=== PATIENT | male | born 1990 | race African-American/Black ===

== ENCOUNTER 2020-08-21 21:22 | Emergency (ER) | payer BC, OTHER ==
--- OUTSIDE RECORDS SUMMARY | 2020-08-21 21:26 | XMS REPORT | Continuity of Care Document ---
:1990 Author Organization [facility] t Address [address] [place] [address] Care Team Providers Name Role Phone Unavailable Unavailable Unavailable Problems Condition Condition Condition Status Onset Resolution Last Treating Co mments Source Name Details Category Date Date Treatment Clinician Date Gastro-eso Gastro-eso Problem Active [facility] - reflux reflux Memoria disease disease l without without Outpati esophagiti esophagiti en t s s Clinics Asthma Asthma Problem Active [facility] without without [facility] - status status Memoria asthmaticu asthmaticu l s or acute s or acute Ou tpati exacerbati exacerbati en t on on Clinics Unequal Unequal Problem Active [facility] leg length leg length Sho kes - Memoria l [facility] Clinics Insomnia Insomnia Problem [facility] Gastritis Gastritis Problem Active [facility] Abdominal Abdominal Problem Active [facility] bloating bloating [facility] Clubfoot Clubfoot Problem [facility] Allergic Allergic Problem Active [facility] rhinitis, rhinitis, [facility] - seasonal seasonal Memori a l [facility] Clinics Early Early Problem Active [facility] satiety satiety [facility] HTN, goal HTN, goal Problem Active [facility] below below [facility] - 140/80 140/80 Memoria l [facility] Prediabete Prediabete Problem Active [facility]ics Hypertrigl Hypertrigl Problem Active [facility] yceridemia yceridemia Sho kes - Memoria l [facility] Clinics Allergic Allergic Problem Active [facility] rhinitis, rhinitis, [facility] - unspecifie unspecifie Me moria d d l seasonalit seasonalit Ou tpati y, y, ent unspecifie unspecifie Cl inics d trigger d trigger Mixed Mixed Problem Active [facility] hyperlipid hyperlipid Sho kes - emia emia [facility] ent [facility] Allergies, Adverse Reactions, Alerts This patient has no known allergies or adverse reactions. Medications Ordered Filled Start Stop Current Ordering Indication Dosage Frequency Signature Comments Components Source Medication Medication Date Date Medication? Clinician (SIG) Name Name Metformin Metformin Yes Bola [address] [facility] HCl HCl 3 [facility] with a [facility] - 00:00: meal Memoria 00 [facility] ent [facility] Yes Bola [address] [facility] Sodium Sodium 07-27 [facility] Flonase Flonase Yes Bola [address] spray [facility] each [facility] - nostril [facility] ent [facility] Ventolin Ventolin Yes Bola [address] [facility] HFA HFA [facility] needed [facility] ent [facility] Omeprazole Omeprazole Yes Bola [address] [facility] ent [facility] Claritin Claritin Yes Bola [address] [facility] [facility] ent Clinics Procedures This patient has no known procedures. Encounters Start End Encounter Admission Attending Care Care Encounter Source Date/Time Date/Time Type Type Clinicians Facility Department ID 2020-01-02 2020-01-02 Outpatient Mayra Orta [id number] [facility] 17:02:00 17:02:00 [facility] 2019-11-23 2019-11-23 [place] [facility] [place] [id number] [facility] 11:59:00 11:59:00 [facility] Medicine Medicine [facility] Clinics 2019-01-18 2019-01-18 [place]patient [place] [place] [id number] [facility] 13:30:00 13:30:00 [facility] Medicine [facility] 2019-01-10 2019-01-10 [place]patient [place] [place] [id number] [facility] 13[facility]30:00 13:30:00 [facility] l Medicine Outpati ent Clinics 2018-12-23 2018-12-23 [facility] [id number] [facility] 16:00:00 16:00:[address] [facility] - Drive [facility] Medicine l Medicine Outpati ent Clinics 2018-12-16 2018-12-16 [facility] [id number] 13:30:00 13:30:[address] [facility] - Drive [facility] Medicine l Medicine Outpati ent Clinics 2018-11-12 2018-11-12 [facility] [id number] [address] 14:40:00 14:40:[address] Luke s - Drive [facility] Medicine l Medicine Outpati ent Clinics 2018-11-04 2018-11-04 [facility] [id number] 13:30:00 13:30:00 t [place] [address] Luke s - Drive [facility] Medicine l Medicine Outpati ent Clinics 2018-10-21 2018-10-21 [facility] [id number] 13:15:00 13:15:[address] [facility] - Drive [facility] Medicine l Medicine Outpati ent Clinics 2018-10-13 2018-10-13 [facility] [id number] 13:15:00 13:15:00 t [place] n[place] [facility] - Drive [facility] Medicine l Medicine Outpati ent Clinics 2018-10-06 2018-10-06 [facility] [id number] [address] 13:15:00 13:15:[address] [facility] s - Drive [facility] Medicine l Medicine Outpati ent Clinics 2018-09-30 2018-09-30 [facility] [id number] 13:15:00 13:15:[address] Luke s - Drive [facility] Medicine l Medicine Outpati ent Clinics 2018-09-24 2018-09-24 [facility] [id number] 11:24:00 11:24:[address] [facility] s - Drive [facility] Medicine l Medicine Outpati ent Clinics 2018-09-24 2018-09-24 [facility] [id number] 10:30:00 10:30:[address] [facility] - Drive [facility] Medicine Outpati ent Clinics 2018-09-21 2018-09-21 [facility] [id number] 15:45:00 15:45:00 t [place] Smarty Ring s - Drive [facility] Medicine Outpati ent Clinics 2018-09-10 2018-09-10 [facility] [id number] 11:04:00 11:04:00 t [place] Smart[place] Ring s - nVoq [facility] Medicine Outpati ent Clinics 2018-07-27 2018-07-27 [facility] [id number] 15:45:00 15:45:00 t [place] Smarty Ring s - nVoq [facility] Medicine Outpati ent Clinics 2018-02-16 2018-02-16 [facility] [id number] 16:00:00 16:00:00 t [facility] Medicine Outpati ent Clinics 2017-12-07 2017-12-07 [facility] [id number] 14:45:00 14:45:00 t [place]ow Smarty Ring s - nVoq [facility] Medicine Outpati ent Clinics 2017-11-19 2017-11-19 [facility] [id number] 08:30:00 08:30:00 t [facility] Medicine Outpati ent Clinics Results This patient has no known results.
--- NOTE | 2020-08-22 00:04 | ER ---
Nurse's Notes [facility] Name: Jazzy Stewart Jr Age: 30 yrs Sex: Male : 1990 Arrival Date: 08/21/2020 Time: 21:25 Bed 2 Private MD: Diagnosis: Viral infection, unspecified Presentation: 08/21 21:30 Chief complaint: Patient states: SOB, cough, CP, congestion, loss of taste started ll1 Thursday. No N/V/D, no known fever. + decreased appetite. Coronavirus screen: Client denies travel out of the [place] in the last 14 days. congestion, cough unrelated to allergies, difficulty breathing, headache, sore throat, loss of taste or smell, Client presents with at least one sign or symptom that may indicate coronavirus-19. Standard/surgical mask placed on the client. Ebola Screen: Patient denies travel to an Ebola-affected area in the 21 days before illness onset. Initial Sepsis Screen: Does the patient meet any 2 criteria? HR > 90 bpm. No. Patient's initial sepsis screen is negative. Does the patient have a suspected source of infection? Yes: Productive cough/pneumonia. Risk Assessment: Do you want to hurt yourself or someone else? Patient reports no desire to harm self or others. Onset of symptoms was August 17, 2020. 21:30 Method Of Arrival: Ambulatory ll1 21:30 Acuity: EFRAIN 3 ll1 Historical: - Allergies: 21:33 No Known Allergies; ll1 - PMHx: 21:33 Asthma; GERD; HTN-no meds; ll1 - PSHx: 21:33 foot surg; ll1 - Immunization history:: Flu vaccine is not up to date. - Social history:: Smoking status: Patient denies any tobacco usage or history of. Screenin:52 Abuse screen: Denies threats or abuse. Nutritional screening: No deficits noted. em Tuberculosis screening: No symptoms or risk factors identified. Fall Risk None identified. Assessment: 23:00 General: Appears in no apparent distress. comfortable, Behavior is calm, cooperative, em appropriate for age, Reports fever for. Pain: Denies pain. Neuro: Level of Consciousness is awake, alert, obeys commands, Oriented to person, place, time, situation. Cardiovascular: Capillary refill < 3 seconds Patient's skin is warm and dry. Rhythm is regular. Respiratory: Reports shortness of breath on exertion cough that is Airway is patent Respiratory effort is even, unlabored, Respiratory pattern is regular, symmetrical. GI: Patient currently denies nausea, vomiting. EENT: Reports nasal congestion nasal discharge loss of smell and taste . Derm: Skin is intact, is healthy with good turgor, Skin is pink, warm \T\ dry. Musculoskeletal: Capillary refill < 3 seconds, Range of motion: intact in all extremities. Vital Signs: 21:30 BP 160 / 105; Pulse 120; Resp 18; Temp 99.9(O); Pulse Ox 97% on R/A; Weight 120.2 kg; ll1 Height 5 ft. 11 in. (180.34 cm); Pain 0/10; 21:30 Body Mass Index 36.96 (120.20 kg, 180.34 cm) 1 ED Course: 21:25 Patient arrived in ED. cf2 21:32 Triage completed. ll1 21:33 Arm band placed on. 1 22:52 Crispin Vela, RN is Primary Nurse. em 22:52 Patient has correct armband on for positive identification. Bed in low position. Call em light in reach. 23:05 Eddie Mcpherson MD is Attending Physician. tw4 23:19 CXR XRAY In Process Unspecified. EDCA 08/22 00:18 No provider procedures requiring assistance completed. Patient did not have IV access em during this emergency room visit. Administered Medications: No medications were administered Outcome: 00:04 Discharge ordered by . tw4 00:24 Discharged to home ambulatory, with family. em 00:24 Condition: stable 00:24 Discharge instructions given to patient, Instructed on discharge instructions, follow up and referral plans. medication usage, Demonstrated understanding of instructions, follow-up care, medications, Prescriptions given X 3. 00:25 Patient left the ED. em Signatures: Dispatcher [employer] Crispin Higgins, RN RN Eddie Mcpherson MD MD 4 Giovany Gambino 2 Ashley Dior RN RN 1
[2020-08-22 01:02] LABS: SARS-COV-2 RT PCR NEGATIVE (NEGATIVE)
[2020-08-22 01:18] VITALS: BP 160/105; TEMP 99.9; O2SAT 97
--- NOTE | 2020-08-22 07:59 | RAD REPORT ---
EXAM DESCRIPTION: Barbie Single View08/21/2020 11:19 pm CLINICAL HISTORY: Shortness of breath COMPARISON: none FINDINGS: The lungs appear clear of acute infiltrate. The heart is normal size IMPRESSION: No acute abnormalities displayed
--- NOTE | 2020-08-23 00:31 | EDPHYS ---
Physician Documentation [facility] Name: Jazzy Stewart Jr Age: 30 yrs Sex: Male : 1990 Arrival Date: 08/21/2020 Time: 21:25 Bed 2 Private MD: ED Physician Eddie Mcpherson HPI: 08/22 06:44 This 30 yrs old Black Male presents to ER via Ambulatory with complaints of Shortness tw4 Of Breath, Congestion, Loss of Taste, Runny Nose, Cough. 06:44 The patient has shortness of breath at rest. tw4 Historical: - Allergies: 08/21 21:33 No Known Allergies; ll1 - PMHx: 21:33 Asthma; GERD; HTN-no meds; ll1 - PSHx: 21:33 foot surg; ll1 - Immunization history:: Flu vaccine is not up to date. - Social history:: Smoking status: Patient denies any tobacco usage or history of. ROS: 08/22 06:53 Constitutional: Negative for fever, chills, and weight loss, Eyes: Negative for injury, tw4 pain, redness, and discharge, Cardiovascular: Negative for chest pain, palpitations, and edema, Abdomen/GI: Negative for abdominal pain, nausea, vomiting, diarrhea, and constipation, Back: Negative for injury and pain, MS/Extremity: Negative for injury and deformity, Skin: Negative for injury, rash, and discoloration, Neuro: Negative for headache, weakness, numbness, tingling, and seizure. Respiratory: Positive for shortness of breath. Exam: 06:53 Constitutional: This is a well developed, well nourished patient who is awake, alert, tw4 and in no acute distress. Head/Face: Normocephalic, atraumatic. Chest/axilla: Normal chest wall appearance and motion. Nontender with no deformity. No lesions are appreciated. Cardiovascular: Regular rate and rhythm with a normal S1 and S2. No gallops, murmurs, or rubs. Normal PMI, no JVD. No pulse deficits. Respiratory: Lungs have equal breath sounds bilaterally, clear to auscultation and percussion. No rales, rhonchi or wheezes noted. No increased work of breathing, no retractions or nasal flaring. Abdomen/GI: Soft, non-tender, with normal bowel sounds. No distension or tympany. No guarding or rebound. No evidence of tenderness throughout. Back: No spinal tenderness. No costovertebral tenderness. Full range of motion. Skin: Warm, dry with normal turgor. Normal color with no rashes, no lesions, and no evidence of cellulitis. MS/ Extremity: Pulses equal, no cyanosis. Neurovascular intact. Full, normal range of motion. Neuro: Awake and alert, GCS 15, oriented to person, place, time, and situation. Cranial nerves II-XII grossly intact. Motor strength 5/5 in all extremities. Sensory grossly intact. Cerebellar exam normal. Normal gait. Vital Signs: 08/21 21:30 BP 160 / 105; Pulse 120; Resp 18; Temp 99.9(O); Pulse Ox 97% on R/A; Weight 120.2 kg; ll1 Height 5 ft. 11 in. (180.34 cm); Pain 0/10; 21:30 Body Mass Index 36.96 (120.20 kg, 180.34 cm) ll1 MDM: 23:05 Patient medically screened. tw4 08/22 06:53 Differential diagnosis: CHF exacerbation, Myocardial Infarction pneumonia, Pneumothorax tw4 reactive airway disease, Sepsis. Data reviewed: vital signs, nurses notes. Special discussion: I discussed with the patient/guardian in detail that at this point there is no indication for admission to the hospital. It is understood, however, that if the symptoms persist or worsen the patient needs to return immediately for re-evaluation. 08/21 22:46 Order name: Droplet/Contact Precautions; Complete Time: 22:57 4 08/21 22:46 Order name: Labs collected and sent; Complete Time: 22:57 4 08/21 22:46 Order name: O2 Per Protocol; Complete Time: 22:57 4 08/21 22:46 Order name: CXR XRAY tw4 Administered Medications: No medications were administered Disposition: 08/22/20 00:04 Discharged to Home. Impression: Viral infection, unspecified. - Condition is Stable. - Discharge Instructions: Viral Respiratory Infection. - Prescriptions for Ibuprofen 800 mg Oral Tablet - take 1 tablet by ORAL route every 8 hours As needed take with food; 30 tablet. Medrol (Yazan) 4 mg Oral Tablets, Dose Pack - take 1 tablet by ORAL route as directed - follow package instructions; 1 packet. Albuterol Sulfate 90 mcg/actuation - inhale 1-2 puff by INHALATION route every 4-6 hours; 1 Inhaler. - Medication Reconciliation Form, Thank You Letter, Antibiotic Education, Prescription Opioid Use form. - Follow up: Private Physician; When: Upon discharge from the Emergency Department; Reason: Recheck today's complaints, Continuance of care, Re-evaluation by your physician. - Problem is new. - Symptoms have improved. Signatures: Dispatcher [employer] [facility] Crispin Vela, RN RN em Eddie Mcpherson MD MD tw4 Ashley Dior RN RN ll1 Corrections: (The following items were deleted from the chart) 08/21 23:39 22:45 CORONAVIRUS+MR.LAB.BRZ ordered. [facility] 23:39 22:46 Influenza Screen (A \T\ B)+BA.LAB.BRZ ordered. [facility] 08/22 00:25 00:04 08/22/2020 00:04 Discharged to Home. Impression: Viral infection, unspecified. em Condition is Stable. Forms are Medication Reconciliation Form, Thank You Letter, Antibiotic Education, Prescription Opioid Use. Follow up: Private Physician; When: Upon discharge from the Emergency Department; Reason: Recheck today's complaints, Continuance of care, Re-evaluation by your physician. Problem is new. Symptoms have improved. tw4
== END 2020-08-22 00:25 | disposition home or self-care (01) ==
LOC: ER 21:22
DX: B34.9 Viral infection, unspecified (principal); Z20.822 Contact with and (suspected) exposure to COVID-19; J45.909 Unspecified asthma, uncomplicated; K21.9 Gastro-esophageal reflux disease without esophagitis
CPT/HCPCS: 0240U; 71045; 99283